=== PATIENT | female | born 1960 | race African-American/Black ===

== ENCOUNTER 2021-03-06 13:19 | Emergency (ER) | payer MEDICAID ==
[~2021-03-06] VITALS: Ht 162.6 cm; Wt 84.0 kg
[~2021-03-06 13:19] MED LIST: ACYC200O2 PO; ALEN70SO3 PO; AMLO10TA4 PO; CALC-4 PO; CHOL20004 PO; GABA300C; HYDR200T35 PO; LISI1TAB11 PO; METO-539 PO; MULT-1146 PO; PANT20TA17 PO; PRED5TAB PO; TRAM50TA3 PO
[2021-03-06 14:58] LABS: BASOPHILS % 0.4 % (0.0-2.0); EOSINOPHILS % 1.5 % (0.0-5.0); HEMATOCRIT. 30.2 % (36.0-48.0); HEMOGLOBIN. 9.8 g/dL (12.0-16.0); LYMPHOCYTES % 34.7 % (20.0-50.0); MEAN CORPUSCULAR HEMOGLOBIN 27.9 pg (28.0-32.0); MEAN CORPUSCULAR VOLUME 85.9 fL (81.0-99.0); MEAN PLATELET VOLUME 8.7 fl (7.4-10.4); MONOCYTES % 14.1 % (2.0-8.0); NEUTROPHILS % 49.3 % (40.0-76.0); PLATELET 143 x1000/uL (130-400); RED BLOOD CELL COUNT 3.52 mill/uL (4.2-5.4); RED CELL DISTRIBUTION WIDTH 13.8 % (11.6-14.6)
[2021-03-06 15:01] LABS: CHLORIDE 108 mEq/L (98-107)
[2021-03-06 15:08] LABS: ETHANOL BLOOD < 10 mg/dL
[2021-03-06] MEDS ORDERED: NITROGLYCERIN 0.4MG TABLET SL SL PRN (15:15)
[2021-03-06] MEDS ORDERED: ASPIRIN 81MG TABLET PO NR (15:15)
[2021-03-06] MEDS ORDERED: MORPHINE SULFATE 4 MG/ML CPJ (NOT FOR IM USE) IV ONE (16:30)
[2021-03-07 00:30] VITALS: BP 147/77
== END 2021-03-07 00:25 | disposition short-term general hospital (02) ==
LOC: ER 13:19
DX: R07.9 Chest pain, unspecified (principal); I10 Essential (primary) hypertension; D72.819 Decreased white blood cell count, unspecified; D64.9 Anemia, unspecified; N28.9 Disorder of kidney and ureter, unspecified; E78.00 Pure hypercholesterolemia, unspecified; K21.9 Gastro-esophageal reflux disease without esophagitis; M32.9 Systemic lupus erythematosus, unspecified; Z86.73 Personal history of transient ischemic attack (TIA), and cerebral infarction without residual deficits; Z87.440 Personal history of urinary (tract) infections; Z79.899 Other long term (current) drug therapy
CPT/HCPCS: 36415; 71045; 80053; 80320; 83690; 83880; 84484; 85025; 93005; 96374; 99285; J2270; Z7610; G0480

== ENCOUNTER 2023-01-16 18:45 | Emergency (ER) | payer MEDICAID ==
[~2023-01-16] VITALS: Ht 162.6 cm; Wt 77.0 kg
[~2023-01-16 18:45] MED LIST changes: -ALEN70SO3 PO; +ALEN70SO4 PO
[2023-01-16 18:51] VITALS: BP 138/84
[2023-01-16] MEDS ORDERED: IBUPROFEN 400MG TABLET PO ONE (19:30)
[2023-01-16] MEDS ORDERED: TRAM50TA3 PO (21:19)
[2023-01-16] MEDS ORDERED: IBUP-2028 MT (21:19)
== END 2023-01-16 21:42 | disposition home or self-care (01) ==
LOC: ER 18:45
DX: M25.552 Pain in left hip (principal); M54.50 Low back pain, unspecified; F41.9 Anxiety disorder, unspecified; K21.9 Gastro-esophageal reflux disease without esophagitis; I10 Essential (primary) hypertension; Z86.73 Personal history of transient ischemic attack (TIA), and cerebral infarction without residual deficits; Z87.440 Personal history of urinary (tract) infections; Z79.899 Other long term (current) drug therapy
CPT/HCPCS: 72100; 73502; 82962; 99284

== ENCOUNTER 2023-11-02 09:48 | Emergency (ER) | payer MEDICAID ==
[~2023-11-02] VITALS: Ht 167.6 cm; Wt 82.0 kg
[~2023-11-02 09:48] MED LIST changes: -ACYC200O2 PO; +IBUP-2028 MT; +[UNRECOGNIZED DRUG - CODE] PO
[2023-11-02 09:57] VITALS: BP 150/74; PULSE 80; RESP 15; TEMP 97.9; O2SAT 100
== END 2023-11-02 10:45 | disposition left against medical advice (07) ==
LOC: ER 09:48
DX: Z53.21 Procedure and treatment not carried out due to patient leaving prior to being seen by health care provider (principal)
CPT/HCPCS: 99281

== ENCOUNTER 2024-12-19 16:40 | Emergency (ER) | payer MEDICAID ==
[~2024-12-19] VITALS: Ht 172.7 cm; Wt 75.0 kg
[2024-12-19 16:46] VITALS: O2SAT 95
[2024-12-19] MEDS: ACETAMINOPHEN 325MG TABLET PO ONE (17:59)
[2024-12-19] MEDS: DIPHENHYDRAMINE 50MG/ML VIAL IM ONE (18:00)
[2024-12-19] MEDS: METHYLPREDNISOLONE SOD SUCC 125MG/2ML (ACT-O-VIAL) IM ONE (18:02)
[2024-12-19] MEDS: NITROGLYCERIN 0.4MG TABLET SL SL PRN (18:52)
[2024-12-19] MEDS: ASPIRIN 81MG TABLET PO ONE (18:52)
[2024-12-19 19:29] LABS: HEMATOCRIT. 32.3 % (36.0-48.0); HEMOGLOBIN. 10.2 g/dL (12.0-16.0); MEAN CORPUSCULAR HEMOGLOBIN 27.5 pg (28.0-32.0); MEAN CORPUSCULAR HGB CONC 31.7 g/dL (31.0-37.0); MEAN CORPUSCULAR VOLUME 86.7 fL (81.0-99.0); MEAN PLATELET VOLUME 9.2 fl (7.4-10.4); PLATELET 102 x1000/uL (130-400); RED BLOOD CELL COUNT 3.72 mill/uL (4.2-5.4); RED CELL DISTRIBUTION WIDTH 13.7 % (11.6-14.6); WHITE BLOOD COUNT 3.5 x1000/uL (4.5-11.0)
[2024-12-19 19:32] LABS: CHLORIDE 109 mEq/L (98-107); POTASSIUM 3.8 mEq/L (3.5-5.1); SODIUM 143 mEq/L (136-145)
[2024-12-19 19:33] LABS: CARBON DIOXIDE 22 mEq/L (21-32)
[2024-12-19 19:35] LABS: DIFFERENTIAL COMMENT 1
[2024-12-19 19:38] LABS: CREATININE 2.1 mg/dL (0.6-1.0); GLUCOSE 95 mg/dL (70-105); UREA NITROGEN BLOOD 23 mg/dL (9-23)
[2024-12-19 19:42] LABS: TROPONIN I HIGH SENSITIVITY 189 ng/L (3.0-34)
[2024-12-19 19:44] LABS: D-DIMER 3.71 mg/L FEU (<0.50); INR 1.1; PARTIAL THROMBOPLASTIN TIME 21.8 sec (23.4-31.0); PROTHROMBIN TIME 11.7 sec (9.6-11.0)
[2024-12-19 19:52] LABS: PLATELET ESTIMATE DECREASED
[2024-12-19 21:15] VITALS: BP 126/63; PULSE 120; RESP 18; TEMP 36.8; O2SAT 99
== END 2024-12-19 21:46 | disposition left against medical advice (07) ==
LOC: ER 16:40 → EDBEDREQ 20:21 → EDBEDREQTM 20:21 → ER 21:46
DX: R07.89 Other chest pain (principal); R79.89 Other specified abnormal findings of blood chemistry; L29.9 Pruritus, unspecified; F41.9 Anxiety disorder, unspecified; I10 Essential (primary) hypertension; K21.9 Gastro-esophageal reflux disease without esophagitis; Z79.899 Other long term (current) drug therapy; Z79.52 Long term (current) use of systemic steroids; Z86.73 Personal history of transient ischemic attack (TIA), and cerebral infarction without residual deficits
CPT/HCPCS: 80048; 83880; 85025; 85379; 85610; 85730; 84484; 36415; 71045; 93970; 93005; 96372; 99285; Z7610; J1200; J2919